=== PATIENT | male | born 2000 | race Caucasian/White ===

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

== ENCOUNTER 2024-01-21 15:47 | Emergency (ER) | payer BC, SELFPAY ==
--- NOTE | 2024-01-21 15:58 | ED.URI ---
HPI - URI/Sore Throat General Chief Complaint: Upper Respiratory Infection Stated Complaint: FEVER/CONGESTION/COUGH Source: patient and RN notes reviewed Mode of arrival: ambulatory Limitations: no limitations History of Present Illness HPI Narrative: 23-year-old male presented for complaint sore throat, body aches, sinus pressure/congestion, cough, fever/chills. Onset 4 days. 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 Not taking anything for symptoms. Denies sob, wheezing, n/v/d. MD elicited complaint: cough Related Data Home Medications Medication Instructions Recorded Confirmed No Home Medications 01/21/24 01/21/24 Allergies Allergy/AdvReac Type Severity Reaction Status Date / Time No Known Allergies Allergy Mild Verified 01/21/24 15:52 Review of Systems Review of Systems: CONSTITUTIONAL: Endorses malaise, chills, sweats, fever EYES: Denies visual changes, redness, or discharge ENT: Reports rhinorrhea, congestion, sore throat CARDIOVASCULAR: Denies chest pain, palpitations, edema RESPIRATORY: Reports cough, post nasal drainage. Denies dyspnea GASTROINTESTINAL: Denies abdominal pain, nausea, vomiting, diarrhea SKIN: Denies rash or itching MUSCULOSKELETAL: Endorses myalgia NEUROLOGIC: Denies headache PMFSH Family History Family History Grandparent Malignant neoplasm of prostate Skin cancer Other No active medical problems Social History Social History Smoking status: Former smoker Alcohol intake: current Drinks per week: 4 Alcohol use details: occasionnally Substance use: never Substance use type: does not use Lack of Transportation: No Lack of Food: Never True Current Housing: I Have Housing Concerned About Future Housing: No Difficulty Paying Gas/Electric Bills: No Difficulty Paying for Meds: No Currently Unemployed: No Education: Associate Degree Difficulty w/ Childcare or Family Care: No Living arrangements: with family Occupation/Education: student Gender identity (if verbalized by the patient): Male Agree to blood products: Yes Exam Narrative: GENERAL: Well-appearing EYES: conjunctivae clear ENT: Mucous membranes moist. TM pearly vick with dull light reflex bilaterally; no tragal tenderness. Oropharynx not erythematous without lesions or exudate, no drooling, no hoarseness, no trismus, uvula midline. No tripod positioning, muffled voice, soft palate or pharyngeal wall bulging NECK: Supple. No lymphadenopathy CHEST: Clear to auscultation, breath sounds equal. No wheezing, rhonchi, rales, or stridor. No respiratory distress, speaks in full sentences. HEART: Regular rate and rhythm. No murmur heard. SKIN: Warm, dry, no rash. NEURO: Alert and oriented x3. PSYCH: Normal mood and affect Course Course Emergency Course: Patient is aware of diagnosis, understands and agrees to treatment plan. Anticipatory guidance given. Patient agrees to follow-up as directed and is aware of reasons to seek care at the emergency department. Portions of this record may have been created with voice recognition software Level of Care: Express Care Visit Vital Signs Vital signs: reviewed MDM - URI/Sore Throat MDM Narrative Medical decision making narrative: Positive COVID. Discussed physical exam findings. Advised supportive measures and signs/symptoms to go to the ER. Pt is appropriate for outpt treatment and f/u. Differential Diagnosis Differential diagnosis: Likely upper respiratory infection, sinusitis and viral infection Discharge Plan Discharge Clinical Impression: COVID-19 Patient Disposition: Home, Self-Care Condition: Stable Instructions: COVID-19 (Coronavirus Disease 2019) (ED) Additional Instructions: Your rapid COVID test was positive today. The following updated recommendations have
[2024-01-21 15:59] VITALS: BP 135/96; PULSE 78; RESP 16; TEMP 36.9; O2SAT 100
== END 2024-01-21 16:05 | disposition home or self-care (01) ==
PROVIDERS: Emergency Provider Nurse Practitioner Family; PCP Family Medicine
DX: U07.1 COVID-19 (principal); Z87.891 Personal history of nicotine dependence
CPT/HCPCS: 87426; 99212; G0463

== ENCOUNTER 2024-09-14 14:34 | Outpatient (CLI) | payer BC, SELFPAY ==
--- NOTE | ~2024-09-14 | XR_ITS ---
XR knee RT 3V 09/14/2024 14:46 Indication: Right knee pain Procedure: 3 views right knee Comparison: No prior studies for comparison. Findings: There is anatomic alignment. No joint space narrowing. No fracture, subluxation or dislocat ion. No joint effusion. Impression: 1: No significant bone or joint abnormality. Reviewed, dictated and finalized at location A. Impression: 1: No significant bone or joint abnormality.
== END 2024-09-14 14:35 | disposition home or self-care (01) ==
LOC: GOSHIMG 14:35
PROVIDERS: PCP Nurse Practitioner; Visit Provider Nurse Practitioner
DX: M25.561 Pain in right knee (principal)
CPT/HCPCS: 73562

== ENCOUNTER 2024-09-21 14:52 | Emergency (ER) | payer BC, SELFPAY ==
[2024-09-21 14:57] VITALS: BP 146/78; PULSE 96; RESP 16; TEMP 36.4; O2SAT 100
--- NOTE | 2024-09-21 15:13 | ECG_ITS ---
Test Date: 2024-09-21 15:24:52 Measurements Intervals [place] Rate: 81 P: 47 [place]: 144 QRS: 39 QRSD: 90 T: 34 QT: 367 QTc: 427 Interpretive Statements SINUS RHYTHM INCOMPLETE RIGHT BUNDLE BRANCH BLOCK BORDERLINE ECG No previous ECG available for comparison Electronically Signed On 09-21-2024 16:08:32 CDT by Sabino Pham D.O.
[2024-09-21 15:38] LABS: Glucose Point of Care 93 mg/dl (65-105)
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
[2024-09-21 16:26] VITALS: BP 133/91; PULSE 77; RESP 18; O2SAT 100
== END 2024-09-21 16:10 | disposition home or self-care (01) ==
PROVIDERS: Emergency Provider Emergency Medicine; PCP Nurse Practitioner
DX: R55 Syncope and collapse (principal); Z87.891 Personal history of nicotine dependence; I45.10 Unspecified right bundle-branch block
CPT/HCPCS: 82948; 93005; 99283

== ENCOUNTER 2024-10-28 13:28 | Outpatient (CLI) | payer BC, SELFPAY ==
[2024-10-28 15:41] LABS: Kit Draw Collected
== END 2024-10-28 13:29 | disposition home or self-care (01) ==
LOC: ANHGOSHLAB 13:29
PROVIDERS: PCP Family Medicine; Visit Provider Family Medicine
DX: Z00.00 Encounter for general adult medical examination without abnormal findings (principal); R03.0 Elevated blood-pressure reading, without diagnosis of hypertension; E66.3 Overweight
CPT/HCPCS: 36415